=== PATIENT | female | born 1995 | race Caucasian/White ===

== ENCOUNTER 2025-05-04 17:29 | Emergency (ER) | payer MEDICAID ==
[~2025-05-04] VITALS: Ht 157.5 cm; Wt 129.0 kg
[2025-05-04 17:43] VITALS: O2SAT 100
[2025-05-04 20:03] VITALS: BP 106/53; PULSE 61; RESP 20; TEMP 36.8; O2SAT 98
== END 2025-05-04 20:05 | disposition home or self-care (01) ==
LOC: ER 17:29
DX: H47.10 Unspecified papilledema (principal); G89.29 Other chronic pain; R51.9 Headache, unspecified; H53.8 Other visual disturbances
CPT/HCPCS: 99282